=== PATIENT | male | born 1975 | race Caucasian/White ===

== ENCOUNTER 2019-04-17 00:20 | Emergency (ER) | payer SELFPAY ==
[2019-04-17 00:33] VITALS: BP 130/116; PULSE 98; RESP 20; TEMP 36.6; O2SAT 100
--- NOTE | 2019-04-17 00:37 | ED_ITS ---
HPI - Male Genitourinary General Chief complaint: Urogenital-Male Stated complaint: erection for almost 2 days Time Seen by Provider: 04/17/19 00:32 Source: patient Mode of arrival: Ambulatory Limitations: no limitations History of Present Illness HPI Narrative: Patient is a 43-year-old male who presents with 48 hours of a priapism. He states that he smoked methamphetamines 2 days ago when it started. He has been unable to get it to go down. He has been smoking weed and drinking alcohol to help the pain. He was able to go to work. He is still able to urinate. He admits that he previously had prior his that lasted for number of hours a few years ago but it did go away on its own. Location: penis Review of Systems Review of Systems Narrative: GENERAL: Denies chills,fever HEENT: Denies throat pain RESPIRATORY: Denies dyspnea, cough, wheezing CARDIOVASCULAR: Denies chest pain, palpitations GASTROINTESTINAL: Denies nausea, vomiting : See HPI MUSCULOSKELETAL: Denies extremity pain, injury SKIN: No rash, no laceration, no pruritus NEUROLOGIC: Denies weakness, dizziness, headache, numbness 8 point review of systems is negative except for those stated above and HPI Patient History Medical History Patient denies medical problems (Acute) Social History substance use type: methamphetamine tobacco type: smokeless tobacco alcohol intake frequency: a few times a month Substance Use Type: marijuana and amphetamines Exam Initial Vital Signs Initial Vital Signs: Vital Signs Temperature 98 F 04/17/19 00:33 Pulse Rate 98 H 04/17/19 00:33 Respiratory Rate 20 04/17/19 00:33 Blood Pressure 130/116 H 04/17/19 00:33 Pulse Oximetry 100 04/17/19 00:33 GENERAL: Well-appearing, well-nourished and in no acute distress. CARDIOVASCULAR: peripheral pulses in tact, cap refill <2 sec RESPIRATORY: No respiratory distress, speaks in full sentences without difficulty : Nurse Noonan in room for exam. Erection noted EXTREMITIES: Normal range of motion, no clubbing or edema. Neurovascularly intact NEUROLOGICAL: Cranial nerves II through XII grossly intact. Normal gait and speech. SKIN: Warm, dry, no petechiae, no rashes or lesions. Course Orders Ordered: Discontinued Medications Hydromorphone HCl (Dilaudid) 1 mg IV NOW ONE Stop: 04/17/19 00:57 Last Admin: 04/17/19 01:06 Dose: 1 mg Documented by: LUCA Lidocaine HCl (Xylocaine 1% (Pf)) 4 ml SUBCUT NOW ONE Stop: 04/17/19 01:12 Last Admin: 04/17/19 01:28 Dose: 4 ml Documented by: LUCA Consultations Consultation #1: Dr. Martins, urology on-call at [facility] dose has been updated patient's symptoms test results. Agrees with transfer to [facility] ED Time: 00:42 Consultation #2: Dr. Encinas ED updated patient's symptoms test results. Agrees with transfer Time: 00:42 Vital Signs Vital signs: Vital Signs - 8 hr 04/17/19 00:33 04/17/19 01:26 04/17/19 01:55 Temperature 98 F Pulse Rate 98 H 88 78 Respiratory Rate 20 18 18 Blood Pressure 130/116 H 121/79 Blood Pressure [Left Arm] 99/64 Pulse Oximetry 100 98 98 MDM - Male Genitourinary MDM Narrative Medical decision making narrative: Initial injection of phenylephrine was done with 500mcg bilaterally without response. then 1mg bilaterally, no response. The patient's vitals are stable. Waited 30 minutes after last injection prior to discharge. His blood pressure did drop some after Dilaudid but started coming back up. Heart rate remained stable. Patient is transferred POV to [facility]. Discharge Plan Departure Patient Disposition: [facility] Clinical Impression: Priapism Discharge Date/Time: 04/17/19 01:59 Activity Restrictions/Additional Instructions: GO DIRECTLY TO [facility] EMERGENCY DEPARTMENT. YOU NEED TO SEE A UROLOGIST, SPECIALIST EMERGENTLY TONIGHT.
--- NOTE | 2019-04-17 00:57 | PC.NURSE ---
He stated after doing meth 2 days ago,he has had a constant erection which has been noted here. 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
[2019-04-17] MEDS: HYDROMORPHONE 1 MG INJ IV (01:06)
[2019-04-17 01:26] VITALS: BP 99/64; PULSE 88; RESP 18; O2SAT 98
[2019-04-17] MEDS: LIDOCAINE 1% (PF) 4 ML SUBCUT (01:28)
[2019-04-17] MEDS: NACL INJ (01:30)
[2019-04-17] MEDS: PHENYLEPHRINE HCL INJ (01:30)
[2019-04-17 01:55] VITALS: BP 121/79; PULSE 78; RESP 18; O2SAT 98
--- NOTE | 2019-04-17 01:59 | PC.NURSE ---
He went to [facility] POV after MD was unable to relieve his priapism.
== END 2019-04-17 01:59 | disposition short-term general hospital (02) ==
LOC: ED 01:42
PROVIDERS: Emergency Provider Emergency Medicine
DX: N48.30 Priapism, unspecified (principal)
CPT/HCPCS: 96374; 99282; 99284; J1170

== ENCOUNTER 2019-04-19 08:58 | Emergency (ER) | payer SELFPAY ==
--- NOTE | 2019-04-19 09:07 | ED.MALEGU ---
HPI - Male Genitourinary General Chief complaint: Urogenital-Male Stated complaint: groin pain Time Seen by Provider: 04/19/19 09:06 Source: patient and old records reviewed Mode of arrival: Ambulatory Limitations: no limitations History of Present Illness HPI Narrative: 43-year-old male comes in with complaint of groin pain. Patient was here April 17 with priapism that had been 2 days in length. This had occurred after using methamphetamines. Patient had attempted drainage and injection of phenylephrine without improvement and was transferred to Urology at telling him where patient underwent surgery. Patient states that he is not sure he thinks the priapism got better for a little bit but then came back very shortly. Patient states since it has been quite painful. He states that it is worse typically in the morning. He states he has been able to urinate but it has been a little bit difficult. He has bandages in place he has not removed them and was told not to when to let them just fall off. He did take a hydrocodone 10 today which was helpful. Patient does not have any testicular pain. He has not had any fevers. He has attempted to contact the urologist but been unsuccessful. Patient denies any further methamphetamine use since his surgery. He states that he has used some marijuana several times. Related Data Allergies Allergy/AdvReac Type Severity Reaction Status Date / Time No Known Drug Allergies Allergy Verified 04/19/19 10:26 Review of Systems Review of Systems ROS Unobtainable: All systems reviewed & are unremarkable except as noted in HPI and below Patient History Medical History Patient denies medical problems (Acute) Social History substance use type: methamphetamine tobacco type: smokeless tobacco alcohol intake frequency: a few times a month Substance Use Type: marijuana and amphetamines Exam Narrative Exam Narrative: GENERAL: Alert and oriented x three, well-nourished male in moderate distress. HEENT: Head normocephalic, atraumatic, EOMI, pupils reactive, face symmetric, moist mucous membranes NECK: Supple, full range of motion CARDIOVASCULAR: Regular rate and rhythm without murmurs, rubs or gallops. RESPIRATORY: Breath sounds equal bilaterally, no wheezes rales or rhonchi. ABDOMEN: Soft, nontender. Normoactive bowel sounds all 4 quadrants. No guarding or rebound, rigidity, no mass : No CVA tenderness. Male: Patient has mild bilateral testicular swelling, testicles are nontender to palpation. Patient has erect penis which is hard, no penile discharge, there is some moderate bruising over the glans and an area of very dark bruising that is almost black at the edge of the glans, there does not appear to be any skin breakdown, testicles non-tender, cremasteric reflex intact, no inguinal hernias noted. EXTREMITIES: Normal range of motion, no clubbing or edema. Neurovascularly intact NEUROLOGICAL: Cranial nerves II through XII grossly intact. Moving all extremities SKIN: Warm, dry, no petechiae, no rashes or lesions. Initial Vital Signs Initial Vital Signs: Vital Signs Temperature 98.1 F 04/19/19 09:11 Pulse Rate 71 04/19/19 09:11 Respiratory Rate 22 04/19/19 09:11 Blood Pressure 123/93 H 04/19/19 09:11 Pulse Oximetry 100 04/19/19 09:11 Course Orders Ordered: ED Orders 04/19/19 10:21 US drain soft tissue Stat 04/19/19 11:44 Arterial Blood Gas Stat Discontinued Medications Lidocaine/Sodium Bicarbonate (Buffered Lidocaine 10 Ml Syr) 10 ml INJ NOW ONE Stop: 04/19/19 11:45 Last Admin: 04/19/19 12:13 Dose: 0.5 ml Documented by: BEKA Morphine Sulfate (Morphine) 4 mg IM NOW ONE Stop: 04/19/19 10:22 Last Admin: 04/19/19 10:28 Dose: 4 mg Documented by: BEKA Vital Signs Vital signs: Vital Signs - 8 hr 04/19/19 09:11 04/19/19 11:45 04/19/19 14:15 Temperature 98.1 F Pulse Rate 71 70 61 Respiratory Rate 22 18 Blood Pressure 123/93 H 150/95 H Blood Pressure [Left Arm] 142/82 H Pulse Oximetry 100 97 100 MDM - Male Genitourinary Lab Data Attestation: I reviewed the patient's lab results. Lab results narrative: penile ABG shows 6.648/CO2 126/O2 of 10/HCO3 13.8 Labs: Urine Dip Bedside Urine Glucose Negative Bedside Urine Bilirubin - Negative Bedside Urine Ketone - Negative Urine Specific Loma 1.010 Bedside Urine Occult Blood - Negative Bedside Urine pH 7.0 Bedside Urine Protein - Negative Bedside Urine Urobilinogen +/- 1mg Bedside Urine Nitrite - Negative Bedside Urine Leukocytes - Negative Esterase Imaging Data penile US: Radiologist's impression: [address] [address] Ultrasound Report Signed Patient: Nela Montes De Oca#: [id number] : 1975Acct:[id number] Age/Sex: 43 / MDate of Service: 04/19/19 Loc: ED Accession Number: [id number] Procedure: US drain soft tissue Ordering Provider: Angelica Del Castillo D.O. PROCEDURE: US DRAIN SOFT TISSUE COMPARISON: None. INDICATIONS: PENILE US, PRIPRISM, SURGERY AND FISTUAL FORMED 2 DAYS AGO TECHNIQUE: Penile ultrasound was performed with Doppler imaging. FINDINGS: The urethra is within normal limits. The patient's known arteriovenous fistula is not readily apparent on ultrasound imaging. Flow was unable to be detected within it the corpus cavernosa arteries in the erect state. The corpus cavernosa and corpus spongiosum are moderately heterogeneous, particularly involving the corpus cavernosa. There is no hematoma or fluid collection. Blood flow is unable to be detected within the deep dorsal vein in the superficial dorsal vein. Blood flow is demonstrated near the glans penis and the superficial fascia. IMPRESSION: 1. The patient's known arteriovenous fistula was unable to be detected by ultrasound. It is uncertain whether this is related to the small size of the fistula or if the fistula is occluded. Clinical correlation is recommended. 2. Heterogeneity of the corpus cavernosa may be within normal limits. However, this appearance could potentially be related to previous surgery. 3. No hematoma or fluid collection within the penis. Dictated by: Johnathan Bowen M.D. on 04/19/2019 at 10:43 Approved by: Johnathan Bowen M.D. on 04/19/2019 at 10:48 MDM Narrative Medical decision making narrative: I spoke with Dr. Martins who is conveyor system operator for urology, he states that this may be a typical sequela after the patient's surgery. He states patient had surgery to form of fistula so that he had a high flow state throughout the penis. He asked if we are able to get a penile ultrasound to evaluate for any blood flow into the corpora, he states if this is present then patient is to continue with current plan. If there is no blood flow present and he would request we attempt to get a penile blood gas and he is happy to discuss the ABG with us if needed. Ultrasound showed heterogeneity in the corpus cavernosum but no hematoma or fluid collection within the penis. Flow was unable to be detected when the corpus cavernosa batteries in the detect state. No hematoma or fluid collection. Blood flow unable to be detected with the deep dorsal vein, in the superficial dorsal vein. Blood flow is demonstrated near the glans penis and the superficial fascia. Patient penile ABG is 6.648/CO2 126/O2 of 10/HCO3 13.8. Blood was very dark. Spoke with Dr. Martins from urology again he asked that patient be transferred back to [facility] Emergency Department in [place] for OR today with likely discharge home afterwards. Patient and I discussed, he his willing to go but does not have transportation today. He was driven POV by a friend the last ER visit. Plan for S transport. I spoke with Dr. Mcgrath in the ER at [place], accepts for transfer. Discharge Plan Departure Patient Disposition: [facility] Clinical Impression: Priapism Discharge Date/Time: 04/19/19 14:24
[2019-04-19 09:11] VITALS: BP 123/93; PULSE 71; RESP 22; TEMP 36.7; O2SAT 100; BMI 28.7
--- NOTE | 2019-04-19 09:18 | PC.NURSE ---
patient reports took a 10mg norco before coming in.
--- NOTE | 2019-04-19 10:21 | DI.US.S_ITS ---
PROCEDURE: US DRAIN SOFT TISSUE COMPARISON: None. INDICATIONS: PENILE US, PRIPRISM, SURGERY AND FISTUAL FORMED 2 DAYS AGO TECHNIQUE: Penile ultrasound was performed with Doppler imaging. FINDINGS: The urethra is within normal limits. The patient's known arteriovenous fistula is not readily apparent on ultrasound imaging. Flow was unable to be detected within it the corpus cavernosa arteries in the erect state. The corpus cavernosa and corpus spongiosum are moderately heterogeneous, particularly involving the corpus cavernosa. There is no hematoma or fluid collection. Blood flow is unable to be detected within the deep dorsal vein in the superficial dorsal vein. Blood flow is demonstrated near the glans penis and the superficial fascia. IMPRESSION: 1. The patient's known arteriovenous fistula was unable to be detected by ultrasound. It is uncertain whether this is related to the small size of the fistula or if the fistula is occluded. Clinical correlation is recommended. 2. Heterogeneity of the corpus cavernosa may be within normal limits. However, this appearance could potentially be related to previous surgery. 3. No hematoma or fluid collection within the penis. Dictated by: Johnathan Bowen M.D. on 04/19/2019 at 10:43 Approved by: Johnathan Bowen M.D. on 04/19/2019 at 10:48
[2019-04-19] MEDS: MORPHINE 4 MG/ML INJ IM (10:28)
--- NOTE | 2019-04-19 11:00 | PC.NURSE ---
patient has swelling at the glans of penis. patient had surgery at [facility] due to priapism.
[2019-04-19 11:45] VITALS: BP 142/82; PULSE 70; O2SAT 97
[2019-04-19] MEDS: LIDO 1%/SOD BICARB 8.4% (10ML) 10 ML SYRINGE INJ (12:13)
--- NOTE | 2019-04-19 12:49 | RT ---
At 1150 blood was drawn from the base of the penis at the [address] Bundy. This blood was then analyzed at 1153 with the I Stat analyzer for results of 6.648 pH, 126.2 PCO2, 10 PO2, -23 BE, 13.8 HCO3, 18 TCO2, 3% SO2. Results reported directly to Dr. Bundy at 1158.
[2019-04-19 14:15] VITALS: BP 150/95; PULSE 61; RESP 18; O2SAT 100
--- NOTE | 2019-04-19 14:18 | PC.NURSE ---
gave report to ambulance,
--- NOTE | 2019-04-19 14:22 | PC.NURSE ---
report given to [facility] ED RN. pt ambulated to [facility].
--- NOTE | 2019-04-20 09:31 | PC.NURSE ---
pt called reporting he doesnt have his wallet.
--- NOTE | 2019-04-20 11:40 | PC.NURSE ---
called pt back, reported that no wallet or ids found in the safe. number for [facility] ambulance given to pt.l
[2019-04-21 13:45] LABS: HCO3 VBG 14 mmol/L (23-28); PCO2 VBG 126.2 mmHg (45-50); PO2 VBG 10 mmHg (35-45); Total CO2 VBG 18 mmol/L (24-29); pH VBG 7.65 (7.33-7.43)
[2019-04-21 13:46] LABS: Oxygen Saturation VBG 3 % (70-75)
== END 2019-04-19 14:24 | disposition short-term general hospital (02) ==
PROVIDERS: Emergency Provider Emergency Medicine
DX: N48.30 Priapism, unspecified (principal)
CPT/HCPCS: 10030; 81003; 82805; 96372; 99283; J2270

== ENCOUNTER 2022-03-22 14:25 | Emergency (ER) | payer OTHER, SELFPAY ==
[2022-03-22 14:35] VITALS: BP 170/88; PULSE 68; RESP 15; TEMP 36.6; O2SAT 98; BMI 28.7
--- NOTE | 2022-03-22 14:39 | DI.RAD.S_ITS ---
PROCEDURE: XR TIBIA FIBULA LT 2V INDICATIONS: injury of michael TECHNIQUE: 2 views of the tibia and fibula were acquired. COMPARISON: None. FINDINGS: Bones: No fractures or dislocations. No suspicious bony lesions. Surgical screws reflecting ACL repair are present. Degenerative changes are present at the knee. Soft tissues: No suspicious soft tissue calcifications or masses. IMPRESSION: No visualized acute fracture or dislocation. However, if clinical concern and/or pain persist, short interval imaging followup in 7-10 days is recommended, as occult injury cannot be definitively excluded. Dictated by: Dari Norris M.D. on 03/22/2022 at 15:20 Approved by: Dari Norris M.D. on 03/22/2022 at 15:21
[2022-03-22] MEDS: ACETAMINOPHEN 325 MG TABLET 650 MG PO (14:47)
--- NOTE | 2022-03-22 16:19 | ED_ITS ---
HPI - Extremity Injury (Lower) General Chief Complaint: Extremity Injury, Lower Stated Complaint: Countertop dropped on left leg Time Seen by Provider: 03/22/22 15:45 Source: patient Mode of arrival: Wheelchair History of Present Illness HPI Narrative: This is a 46-year-old male who presents to the emergency department complaining of left lower leg pain after a [place] counter top fell on his left leg at work today. This is a work-related injury. Patient states that he needs something for pain besides Tylenol, patient has not taken anything prior to arrival. He denies any weakness, sensation changes other than pain, or difficulty walking. Patient denies any medical history. Declines wanting a tetanus vaccination today, has an abrasion without any lacerations. Related Data Allergies Allergy/AdvReac Type Severity Reaction Status Date / Time No Known Drug Allergies Allergy Verified 03/22/22 14:41 Review of Systems Review of Systems Narrative: Review of systems is negative for acute abnormalities unless otherwise noted in HPI Patient History Medical History Patient denies medical problems Social History substance use type: methamphetamine tobacco type: smokeless tobacco alcohol intake frequency: a few times a month Substance Use Type: marijuana and amphetamines Exam Narrative Exam Narrative: Reviewed vitals signs and nursing notes. MSK: moves all extremities, neurovascularly intact, no weakness, normal tone, left lower extremity contusion with abrasion, mild edema, no surrounding erythema, laceration, bleeding, brisk cap refill in lower extremity, normal range of motion without deficit. Dorsiflexion and plantar extension intact wi thout deficit Skin: brisk capillary refill, without pallor or erythema Neuro: normal speech and cognition, A&O x3, ambulatory, clear speech Psych: mental status is grossly normal, congruent mood, normal affect, pleasant and cooperative Initial Vital Signs Initial Vital Signs: Vital Signs Temperature 97.9 F 03/22/22 14:35 Pulse Rate 68 03/22/22 14:35 Respiratory Rate 15 03/22/22 14:35 Blood Pressure 170/88 H 03/22/22 14:35 Pulse Oximetry 98 03/22/22 14:35 Oxygen Delivery Method 03/22/22 14:35 Course Orders Ordered: ED Orders 03/22/22 14:39 XR tibia fibula LT 2V Stat Discontinued Medications Acetaminophen (Acetaminophen 325 Mg Tablet) 650 mg PO NOW ONE Stop: 03/22/22 14:41 Last Admin: 03/22/22 14:47 Dose: 650 mg Documented By: ZOFIA Ketorolac Tromethamine (Ketorolac 30 Mg/Ml Vial) 30 mg IV NOW ONE Stop: 03/22/22 16:20 Last Admin: 03/22/22 16:26 Dose: 30 mg Documented By: ZOFIA(2) Tramadol HCl (Tramadol 50 Mg Tablet) 50 mg PO NOW ONE Stop: 03/22/22 16:20 Last Admin: 03/22/22 16:26 Dose: 50 mg Documented By: ZOFIA(2) Vital Signs Vital signs: Vital Signs - 8 hr 03/22/22 14:35 03/22/22 16:49 Temperature 97.9 F Pulse Rate 68 79 Respiratory Rate 15 16 Blood Pressure 170/88 H 165/81 H Pulse Oximetry 98 Oxygen Delivery Method Room Air MDM - Extremity Injury (Lower) Imaging Data Extremity x-ray #1: Radiologist's Impression: PROCEDURE:? XR TIBIA FIBULA LT 2V ? INDICATIONS:? injury of michael ? TECHNIQUE:? 2 views of the tibia and fibula were acquired.? ? COMPARISON:? None. ? FINDINGS:? ? Bones:? No fractures or dislocations.? No suspicious bony lesions.? Surgical screws reflecting ACL repair are present.? Degenerative changes are present at the k nee. ? Soft tissues:? No suspicious soft tissue calcifications or masses.? ? IMPRESSION:? No visualized acute fracture or dislocation. However, if clinical concern and/or pain persist, short interval imaging followup in 7-10 days is recommended, as occult injury cannot be definitively excluded. ? ? Dictated by: Dari Norris M.D. on 03/22/2022 at 15:20 ? ? Approved by: Dari Norris M.D. on 03/22/2022 at 15:21 ? [facility] Narrative Medical decision making narrative: This is a 46-year-old male who presents to the emergency department complaining of left lower extremity pain after a counter top fell on his lower leg. He declined a tetanus, he was asking for pain medication in addition to Tylenol, he was given ketorolac, tramadol and Tylenol in the emergency department. His x- ray of his left tibia/fibula did not show any acute fracture or dislocation, no suspicious soft tissue injury. Patient understands to ice, elevate, use Tylenol and ibuprofen as needed for his pain, this is a work-related [place], [id number]. Patient requests crutches states that it is painful to walk on, he was given crutches and ambulated well without assistance. Patient is appropriate and amenable to discharge home. Vital signs are stable on repeat examination is unremarkable. Patient has been informed of results. Patient has been given strict return to ER precautions for any new or worsening symptoms. Patient understands to follow up closely with outpatient providers as instructed. Patient understands plan and agrees to discharge home. All questions and concerns answered at this time. Discharge Plan Departure Patient Disposition: Home Clinical Impression: Work related injury Contusion Qualifiers: Encounter type: initial encounter Contusion area: lower leg Laterality: left Qualified Code(s): S80.12XA - Contusion of left lower leg, initial encounter Instructions: Contusion Activity Restrictions/Additional Instructions: *You have been diagnosed with a contusion to your left leg. The x-ray does not show any fracture, this should get better in the next week, take ibuprofen 800 mg every 8 hours with food and water, you can take 975 mg of Tylenol with this for added pain benefit. Use ice for 20 minutes 3 or 4 times a day for the next 3 days, this should get better quickly. I hope you feel better soon, [id number]. *What to do: *Please continue to take your regular medications as directed. [ ] New medication prescriptions sent to your pharmacy: [ ] [ ] New medication written as a paper prescription [ x] No new medications given *Please follow up with your primary care provider in 2-3 days, call for an appointment. Let them know you were seen in the Emergency Department and that we asked that you be seen for follow-up. We will electronically transmit a record of today's note if your PCP is in our system *If you do not have a primary care provider please contact [phone] to establish care with one of the [facility] primary care providers. *Return to Emergency Department if you should have any new, worsening, or concerning symptoms, such as [fever greater than 101F, chills, worsening pain, persistent vomiting or other bothersome symptoms]. Visit Report Forms: Patient Portal/API
[2022-03-22] MEDS: TRAMADOL 50 MG TABLET PO (16:26)
[2022-03-22] MEDS: KETOROLAC 30 MG/ML VIAL IV (16:26)
[2022-03-22 16:49] VITALS: BP 165/81; PULSE 79; RESP 16
== END 2022-03-22 17:08 | disposition home or self-care (01) ==
PROVIDERS: Emergency Provider Nurse Practitioner Critical Care Medicine
DX: S80.12XA Contusion of left lower leg, initial encounter (principal); Y99.0 Civilian activity done for income or pay; W20.8XXA Other cause of strike by thrown, projected or falling object, initial encounter
CPT/HCPCS: 73590; 96374; 99283; 99284; J1885